=== PATIENT | male | born 1930 | race Caucasian/White ===

== ENCOUNTER → 2018-02-22 | Outpatient (CLI) | payer MEDICARE, OTHER | LOC: GMAH 10:34 | PROVIDERS: ATTEND Family Medicine | DX: E03.9 Hypothyroidism, unspecified (principal) ==

== ENCOUNTER → 2018-04-01 | Outpatient (CLI) | payer MEDICARE, OTHER ==
--- NOTE | 2018-04-01 13:07 | MRI ---
EXAM DESCRIPTION: Brain w/wo Contrast: Magnetic Resonance Imaging. CLINICAL HISTORY: DIPLOPIA COMPARISON: None. TECHNIQUE: Multiplanar, high-field MRI, multiple conventional sequences, without and with gadolinium IV contrast. No adverse reactions. Multiple axial diffusion sequences. FINDINGS: Small flat regions of hyperintense FLAIR and T2-weighted signal in the periventricular white matter with more punctate hyperintensities in the bilateral velásquez-white matter junctions of the cerebral hemispheres. . Normal signal in the bilateral basal ganglia. No hemorrhage, no cerebral edema, no mass-effect. Normal contrast enhancement. Normal signal in the brainstem and cerebellar hemispheres. No hemorrhage, no cerebral edema, no mass-effect. Normal contrast enhancement. Concordance of the diffusion and non-diffusion sequences with no evidence of acute or subacute infarction. Cortical sulci, ventricles, and other CSF spaces, and the subdural spaces are normally configured for the patient's age.. No effacement or displacement. No midline shift. No extra-axial hemorrhage. Normal contrast enhancement. Normal flow signal void in the major vessels of the [place], and the venous sinuses. IACs are symmetric bilaterally. Normal signal in the bilateral mastoid air cells. No mass effect in the bilateral Cerebellopontine angles. Normal contrast enhancement. Pituitary gland occupies most of the sella. Normal contrast enhancement. Base of the cerebellar tonsils is at the level of the foramen magnum. Possible air-fluid level in left mastoid air cells. Mucoperiosteal thickening bilateral ethmoid air cells. No soft tissue masses or abnormal enhancement in the bilateral orbits, optic nerves, optic chiasm or optic tracts. The bony calvarium is intact. IMPRESSION: 1. Minimal white matter signal changes bilaterally symmetric. Most likely related to cerebral microvascular disease and normal aging process. Less likely related to demyelination, migraine headaches, inflammatory process, or vasculitis. 2. Normal noncontrast MRI diffusion study with no evidence of acute or subacute infarction or significant ischemia. 3. 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 4. No interpreted abnormalities of the bilateral orbits, optic nerves, optic chiasm, or optic tract. No mass effect in the suprasellar cistern. Findings called to Dr. George's voice mail at 1305 hours on 04/01/2018. Electronically signed by: Clement Encarnacion MD 04/01/2018 1:06 PM CDT
== END ==
LOC: MRI 11:39
PROVIDERS: ATTEND Family Medicine
DX: H53.2 Diplopia (principal); J32.9 Chronic sinusitis, unspecified

== ENCOUNTER → 2018-10-06 | Outpatient (CLI) | payer MEDICARE, OTHER | LOC: GMAH 16:55 | PROVIDERS: ATTEND Family Medicine | DX: E03.9 Hypothyroidism, unspecified (principal) ==

== ENCOUNTER → 2019-01-07 | Outpatient (CLI) | payer MEDICARE, OTHER | LOC: GMAH 10:29 | PROVIDERS: ATTEND Family Medicine | DX: E03.9 Hypothyroidism, unspecified (principal); E78.2 Mixed hyperlipidemia; Z12.5 Encounter for screening for malignant neoplasm of prostate | CPT/HCPCS: 84443; 84550; G0103 ==

== ENCOUNTER → 2019-04-12 | Outpatient (CLI) | payer MEDICARE, OTHER ==
--- NOTE | 2019-04-12 08:23 | CT ---
EXAM DESCRIPTION: Abdoment/Pelvis w/o Contrast CLINICAL HISTORY: ABNORMAL WEIGHT LOSS COMPARISON: None Available TECHNIQUE: CT of the abdomen and Pelvis was performed without IV contrast. This exam was performed according to our departmental dose-optimization program, which includes automated exposure control, adjustment of the mA and/or kV according to patient size and/or use of iterative reconstruction technique. FINDINGS: Lung bases:Unremarkable. Abdominal aorta and branches: Mural calcification in the abdominal aorta without aneurysm. IVC/Portal Vein:Normal. Ascites:None. Pneumoperitoneum:None. Adenopathy:None. Omentum:Normal. Distal esophagus:No hiatal hernia or wall thickening. Stomach:Unremarkable. Small bowel/mesentery:No wall thickening or dilation. No mesenteric inflammation. Liver:No hepatomegaly, mass or intrahepatic biliary duct dilation. Gallbladder: Several tiny calcified gallstones without pericholecystic inflammation or fluid. Spleen:No splenomegaly or focal splenic lesion. Pancreas:No mass, pancreatic duct dilation or peripancreatic inflammation/fluid. Adrenals:No adrenal nodule. Kidneys/ureters:No mass, urinary tract calculus or hydroureteronephrosis. Bladder:No wall thickening or calcification. Reproductive organs: The prostate is enlarged, measuring 5.3 cm transverse diameter with mass effect on the bladder floor. Colon: Colonic diverticulosis without diverticulitis. Moderate amount colonic stool and gas. Appendix:No appendicitis. 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 Abdominal Wall:No hernia or other mass. IMPRESSION: Colonic diverticulosis without diverticulitis. Cholelithiasis without pericholecystic inflammation or fluid. Enlarged prostate, correlate with serum PSA evaluation. 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 Electronically signed by: Michael Youngblood MD 04/12/2019 8:21 AM CDT
== END ==
LOC: CT 08:00
PROVIDERS: ATTEND Family Medicine
DX: K57.30 Diverticulosis of large intestine without perforation or abscess without bleeding (principal); K80.20 Calculus of gallbladder without cholecystitis without obstruction; I70.90 Unspecified atherosclerosis; N40.0 Benign prostatic hyperplasia without lower urinary tract symptoms

== ENCOUNTER → 2020-08-24 | Outpatient (CLI) | payer MEDICARE, OTHER | LOC: GMA MATASK 10:18 | PROVIDERS: ATTEND Family Medicine | DX: I10 Essential (primary) hypertension (principal); Z12.5 Encounter for screening for malignant neoplasm of prostate; E03.9 Hypothyroidism, unspecified | CPT/HCPCS: 84443; 84550; G0103 ==